=== PATIENT | female | born 2000 | race Caucasian/White ===

== ENCOUNTER 2024-09-04 10:27 | Emergency (ER) | payer BC, SELFPAY ==
[2024-09-04 10:34] VITALS: BP 125/88
[2024-09-04 12:02] LABS: % Basophils 0.3 % (0-2); % Eosinophils 0.4 % (0-6); % Immature Granulocytes 0.3 % (0-0.5); % Monocytes 3.6 % (1.7-9.3); % Neutrophils 74.4 % (42.2-75.2); Absolute Lymphocytes 2.1 10^3/uL (1.2-3.4); Absolute Monocytes 0.4 10^3/uL (0.1-0.6); Absolute Neutrophils 7.5 10^3/uL (1.4-6.5); Hematocrit 40.4 % (37.0-47.0); Hemoglobin 14.2 g/dL (12.0-16.0); Mean Corp Hgb Conc. 35.1 g/dL (33.0-37.0); Mean Corpuscular Hgb 29.6 pg (27.0-31.0); Mean Corpuscular Volume 84.2 fL (81.0-99.0); Mean Platelet Volume 10.1 fL (7.4-10.4); Nucleated Red Blood Cells % 0 %; Platelet Count 252 10^3/uL (130-400); Red Cell Dist. Width 11.3 % (11.5-14.5)
[2024-09-04 12:12] LABS: HCG, Serum Qualitative Screen Negative
[2024-09-04 12:16] LABS: ALT (SGPT) 15 U/L (0-35); AST (SGOT) 24 U/L (14-36); Albumin 4.2 g/dl (3.5-5.0); Alkaline Phosphatase 60 U/L (38-126); Blood Urea Nitrogen 14 mg/dl (7-17); Calcium 9.6 mg/dl (8.4-10.2); Carbon Dioxide 25 mmol/L (22-30); Chloride 103 mmol/L (98-107); Glucose 74 mg/dl (70-99); Lipase 43 U/L (23-300); Potassium 4.2 mmol/L (3.5-5.1); Sodium 137 mmol/L (135-145); Total Bilirubin 1.2 mg/dl (0.2-1.3); Total Protein 6.6 g/dl (6.3-8.2); eGFR > 60.00
--- NOTE | 2024-09-04 13:37 | ED.GENMED ---
History of Present Illness
General
Chief Complaint: Abdominal Symptoms
Source: patient
Time Seen by Provider: 09/04/24 12:26
History of Present Illness
History of Present Illness:
23-year-old female with no significant past medical history presenting to the ER for evaluation of upper abdominal pain that started around 8 AM shortly after eating breakfast accompanied with nausea but no vomiting, currently improved in the back
although still present. Patient was seen at [facility] at the end of June and had a CT scan done for similar symptoms which showed gallbladder sludge but no other acute pathologies and was recommended that if she had recurring symptoms
should present back to the ER. Patient does note that she has made some dietary modifications and had avoided fattier/fried foods but did have some chicken last night which she states she had not had since June. Patient denies any history of
abdominal surgeries. Social history noncontributory.
Past History
Past History
ED Past Medical History: None
ED Past Surgical History: None
Social History
Tobacco: Non-smoker
Alcohol: None
Drug: None
Personal: Other (Engaged)
Living: with family
Employment: Employed
Review of Systems
Review of Systems
All Other Systems: ROS reviewed and negative except as documented in HPI and ROS
Phy Exam
Physical Exam
Physical Exam:
GENERAL: Alert , in no apparent distress
EYE: clear conjunctiva b/l
HEAD: NCAT
ENT: o/p clr, mmm.
CARDIAC: Regular rate and rhythm .
LUNGS: Clear breath sounds bilaterally, no acute respiratory distress, no wheezes/rales/rhonchi
ABDOMEN: Soft, generally tender within the upper abdomen, no r/g, no cvat
NEUROLOGICAL: Alert and oriented
SKIN: Warm and dry, skin intact.
MUSCULOSKELETAL: well perfused.
PSYCH: Normal and appropriate interaction.
Scores
Heart Failure Risk
Heart Failure Risk Score: Not Applicable
Heart Score for Chest Pain Patients
STEMI patient?: Not applicable
Withdrawal Assessment of Alcohol
Withdrawal Assessment Completed?: Not applicable
Course
Orders/Labs/Results
Orders:
Orders
09/04/24 11:39
Test Result ONCE
09/04/24 11:45
CMP [Comprehensive Metabolic Panel] Urgent
Complete Blood Count/With Diff Urgent
HCG, Serum Qualitative Screen Urgent
Lipase Urgent
09/04/24 13:07
Ketorolac [Toradol] 30 mg IV NOW STA
US Abdomen Complete/Upper Urgent
Comment:
Reason For Exam: upper abd pain
Abnormal Lab Results
09/04/24
11:45
RDW 11.3 L %
(11.5-14.5)
Absolute Neuts (auto) 7.5 H 10^3/uL
(1.4-6.5)
09/04/24 11:45
09/04/24 11:45
Vital Signs
Initial and Last Documented VS:
Initial Vital Signs
Temp Pulse Resp BP Pulse Ox
98.5 F 64 16 125/88 100
09/04/24 10:34 09/04/24 10:34 09/04/24 10:34 09/04/24 10:34 09/04/24 10:34
Last Documented Vital Signs
Temp Pulse Resp BP Pulse Ox
98.5 F 64 16 125/88 100
09/04/24 10:34 09/04/24 10:34 09/04/24 10:34 09/04/24 10:34 09/04/24 10:34
MDM/Problems Addressed
Differential Diagnosis Includes:
GERD, gastritis, cholecystitis, symptomatic cholelithiasis, , pancreatitis
MDM/Problems Addressed:
23-year-old female presenting to the ER for evaluation of upper abdominal pain with acute onset started around 8 AM, improved currently. Recent CT scan done at outside facility showed sludge within the gallbladder. Labs initiated on arrival which
show no leukocytosis and no abnormal liver tests. Ultrasound of the abdomen ordered. Toradol ordered for symptomatic relief. Disposition pending. About
*Radiology
Radiology exam reviewed: radiology read reviewed
*Pulse Oximetry
Patient hypoxic: no
*Critical Care Note
Total Time (30-74mins, 75-104mins- exclusive of procedures): Not Applicable
Patient Management
Escalation/DeEscalation of care consider admission/obs:
Patient's ultrasound came back without any significant abnormalities. She notes feeling improvement with Toradol and feels comfortable being discharged home. I do suspect GERD/gastritis to be the most likely diagnosis. Continued with dietary
modification recommendations. Prescription for Protonix sent to pharmacy. Encourage close GI follow-up. Stable for discharge home.
ED Attending Note
-
Portions of this chart may have been created with voice recognition software.� Occasional wrong word or��sound alike� substitutions may have occurred due to the inherent limitations of voice recognition software.
Discharge Plan
Departure
Patient Disposition: Home (Routine Discharge)
Date of Disposition: 09/04/24
Time of Disposition: 14:10
Patient with high blood pressure during this ER visit?: No
Discharge Problem:
Abdominal pain
Instructions: Abdominal Pain
Prescriptions:
New
pantoprazole [Protonix] 40 mg tablet,delayed release (DR/EC)
40 mg PO DAILY Qty: 30 0RF
Referrals:
Deana Downs MD [Active] - (GI - Call for appointment as needed)
Interventions
Interventions:
*Risk Screen - Suicide Last Done: 09/04/24 15:03
*General Assessment Last Done: 09/04/24 11:45
*Neglect/Abuse Screening Last Done: 09/04/24 11:45
ED- Fall Risk Assessment Last Done: 09/04/24 11:45
*ED COVID-19 Vaccine History Last Done: 09/04/24 11:45
*Nursing Disposition Last Done: 09/04/24 15:03
BU-Antohu-Qmsafjxvgp Assessment Last Done: 09/04/24 11:45
Discharge Date and Time
Discharge Date/Time: 09/04/24 15:04
Print Language: [place]
[2024-09-04] MEDS: TORADOL 30 MG IV (14:24)
== END 2024-09-04 15:04 | disposition home or self-care (01) ==
LOC: EMR 10:27
PROVIDERS: EMERGENCY PHYSICIAN Student in an Organized Health Care Education/Training Program; FAMILY PHYSICIAN Family Medicine
DX: R10.10 Upper abdominal pain, unspecified (principal)
CPT/HCPCS: 96374; 99284; 76700; 80053; 83690; 84703; 85025